=== PATIENT | male | born 1985 | race Caucasian/White ===

== ENCOUNTER → 2020-12-19 10:38 | Outpatient (CLI) | payer OTHER, SELFPAY ==
--- NOTE | 2020-12-19 11:24 | RAD_ITS ---
STUDY: X-RAY CHEST REASON FOR EXAM: Male, 35 years old. Shortness of breath TECHNIQUE: Frontal and lateral views of the chest COMPARISON: None. FINDINGS: The lungs are clear. There are no pleural effusions. There is no pneumothorax. The heart is normal in size. The visualized osseous structures are within normal limits. RAD/Chest PA and Lateral IMPRESSION: No acute thoracic pathology. Electronically Signed: Jarrod Cordero MD at 12:29 EDT Tel , Service support ,
--- NOTE | 2020-12-20 08:40 | PFT ---
INTRODUCTION: The patient is a 35-year-old male that presents for pulmonary function studies secondary to a diagnosis of shortness of breath. Respiratory therapy reports good patient effort. Bronchodilators were used during testing. INTERPRETATION: Forced expiration spirometry demonstrates no evidence of a large airways obstructive ventilatory defect. There was a significant response to aerosolized bronchodilators noted. Spirograms are of good quality and plateau normally. Body plethysmography was performed and revealed a decreased TLC to 4.3 L, 59% of predicted, indicative of a severe restrictive ventilatory impairment. The remainder of the lung volumes are symmetrically reduced. Diffusing capacity by single breath CO was mildly reduced at 76% of predicted. IMPRESSION: Severe restrictive ventilatory impairment with mild reduction in diffusing capacity and significant bronchodilator response.
== END ==
PROVIDERS: Referring Provider Orthopaedic Surgery; Visit Provider Orthopaedic Surgery
DX: R06.02 Shortness of breath (principal)
CPT/HCPCS: 71046; 94060; 94726; 94729